=== PATIENT | female | born 1995 | race African-American/Black ===

== ENCOUNTER 2017-12-14 19:52 | Emergency (ER) | payer MEDICAID ==
[~2017-12-14] VITALS: Ht 162.6 cm; Wt 63.5 kg
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
--- NOTE | 2017-12-14 21:12 | NUR ---
PT AT CT FROM HEAD SCAN
--- NOTE | 2017-12-14 21:30 | NUR ---
Patient discharged to home in stable conditon. Written and verbal after care instructions given. Patient verbalizes understanding of instructions. Patient able to ambulate unassisted with steady gait. Patient left with all personal belongings.
[2017-12-14 21:43] VITALS: BP 112/69
== END 2017-12-14 21:30 | disposition home or self-care (01) ==
LOC: ER 19:55
DX: S02.2XXA Fracture of nasal bones, initial encounter for closed fracture (principal); F07.81 Postconcussional syndrome; F17.210 Nicotine dependence, cigarettes, uncomplicated; X58.XXXA Exposure to other specified factors, initial encounter; Y93.89 Activity, other specified; Y92.89 Other specified places as the place of occurrence of the external cause; Y99.8 Other external cause status
CPT/HCPCS: 70450; 70486; 72125; A4663

== ENCOUNTER 2019-01-01 14:01 | Emergency (ER) | payer MEDICAID ==
[~2019-01-01] VITALS: Ht 162.6 cm; Wt 63.5 kg
[2019-01-01] MEDS ORDERED: TDAP DIPH,PERTUSS,TET VAC/PF 0.5 ML DISP.SYRIN IM ONE ×2 (14:23→14:30)
[2019-01-01 14:30] VITALS: BP 131/68
--- NOTE | 2019-01-01 14:30 | NUR ---
Patient discharged to home in stable conditon. Written and verbal after care instructions given. Patient verbalizes understanding of instructions.
== END 2019-01-01 14:32 | disposition home or self-care (01) ==
LOC: ER 14:01
DX: S01.452A Open bite of left cheek and temporomandibular area, initial encounter (principal); F17.200 Nicotine dependence, unspecified, uncomplicated; W50.3XXA Accidental bite by another person, initial encounter; Y93.89 Activity, other specified; Y92.89 Other specified places as the place of occurrence of the external cause; Y99.8 Other external cause status
CPT/HCPCS: 90715; A4663

== ENCOUNTER 2019-07-30 11:35 | Emergency (ER) | payer MEDICAID ==
[~2019-07-30] VITALS: Ht 162.6 cm; Wt 63.5 kg
--- NOTE | 2019-07-30 12:08 | NUR ---
Dr Kerns at the bedside for MSE.
[2019-07-30 12:18] VITALS: BP 105/67
--- NOTE | 2019-07-30 12:19 | NUR ---
Patient discharged to home in stable conditon. Written and verbal after care instructions given. Patient verbalizes understanding of instructions.
== END 2019-07-30 12:19 | disposition home or self-care (01) ==
LOC: ER 11:35
DX: H66.91 Otitis media, unspecified, right ear (principal); F17.200 Nicotine dependence, unspecified, uncomplicated
CPT/HCPCS: A4663

== ENCOUNTER 2020-01-31 09:36 | Emergency (ER) | payer MEDICAID ==
[~2020-01-31] VITALS: Ht 162.6 cm; Wt 63.5 kg
[2020-01-31] MEDS ORDERED: ACETAMINOPHEN 325 MG TABLET PO ONE (10:00)
[2020-01-31] MEDS ORDERED: ACETAMINOPHEN 325 MG TABLET ONE (10:05)
--- NOTE | 2020-01-31 10:35 | NUR ---
PATIENT WAS SEEN BY . IMAGING COMPLETE.
--- NOTE | 2020-01-31 10:42 | NUR ---
DC AND FOLLOW UP INSTRUCTIONS GIVEN AND EXPLAINED TO PATIENT WHO STATES SHE UNDERSTANDS ALL INSTRUCTIONS INCLUDING NARCOTIC PRECAUTIONS.
== END 2020-01-31 10:50 | disposition home or self-care (01) ==
LOC: ER 09:36
DX: S06.9X1A Unspecified intracranial injury with loss of consciousness of 30 minutes or less, initial encounter (principal); S16.1XXA Strain of muscle, fascia and tendon at neck level, initial encounter; S50.01XA Contusion of right elbow, initial encounter; S80.01XA Contusion of right knee, initial encounter; R40.2412 Glasgow coma scale score 13-15, at arrival to emergency department; V43.52XA Car driver injured in collision with other type car in traffic accident, initial encounter; Y92.410 Unspecified street and highway as the place of occurrence of the external cause
CPT/HCPCS: 70450; 73080; A4663

== ENCOUNTER 2020-05-02 18:21 | Emergency (ER) | payer MEDICAID ==
[~2020-05-02] VITALS: Ht 162.6 cm; Wt 63.5 kg
--- NOTE | 2020-05-02 18:53 | NUR ---
pending MD evaluation@this time
[2020-05-02] MEDS ORDERED: ACETAMINOPHEN ES 500 MG TABLET PO ONE (19:00)
[2020-05-02] MEDS ORDERED: ACETAMINOPHEN ES 500 MG TABLET ONE (19:04)
--- NOTE | 2020-05-02 19:05 | NUR ---
Blood being drawn by ab vice president global advertising sales, hallie U/S scan@this time Addendum: 05/02/20 at 1907 by WILTON blood draw by lab vice president global advertising sales
--- NOTE | 2020-05-02 19:07 | NUR ---
Assumed care of patient. no acute distress noted. vss
[2020-05-02 19:14] LABS: *BILIRUBIN,URIN NEGATIVE (NEGATIVE); *BLOOD, URINE 3+ (NEGATIVE); *CLARITY,URINE SLIGHTLY CLOUDY (CLEAR); *COLOR,URINE YELLOW (YELLOW); *KETONES,URINE TRACE (NEGATIVE); *UROBILINOGEN,URINE 0.2 E.U./dl (NORMAL); LEUKOCYTE ESTERASE ,URINE NEGATIVE (NEGATIVE); NITRITE, URINE NEGATIVE (NEGATIVE); UGLUCOSE NEGATIVE (NEGATIVE)
[2020-05-02 19:21] LABS: BASOPHILS # (AUTO) 0.1 K/uL (0.0-8.0); BASOPHILS % (AUTO) 0.8 % (0.0-2.0); EOSINOPHILS % (AUTO) 0.4 % (0.0-7.0); HEMATOCRIT 34.6 % (31.2-41.9); HEMOGLOBIN 10.9 g/dL (10.9-14.3); LYMPHOCYTES # (AUTO) 2.7 K/uL (20.0-40.0); LYMPHOCYTES % (AUTO) 27.3 % (20.5-51.5); MEAN CORPUSCULAR HEMOGLOBIN 23.7 uug (24.7-32.8); MEAN CORPUSCULAR HGB CONC 32 g/dL (32.3-35.6); MEAN CORPUSCULAR VOLUME 75.2 fL (75.5-95.3); MONOCYTES # (AUTO) 0.8 K/uL (2.0-10.0); MONOCYTES % (AUTO) 8.1 % (0.0-11.0); NEUTROPHILS # (AUTO) 6.2 K/uL (1.8-8.9); NEUTROPHILS % (AUTO) 63.4 % (38.5-71.5); PLATELET COUNT (AUTO) 292 K/uL (179-408); WHITE BLOOD COUNT (AUTO) 9.8 K/uL (3.8-11.8)
[2020-05-02 19:42] LABS: BILIRUBIN,DIRECT 0.1 mg/dL (0.0-0.2); BILIRUBIN,TOTAL 0.3 mg/dL (0.2-1.0); CREATININE 0.7 mg/dL (0.6-1.3); TOTAL PROTEIN, SERUM 6.9 g/dL (6.4-8.2)
[2020-05-02 19:50] LABS: POTASSIUM 3.7 mmol/L (3.5-5.1)
--- NOTE | 2020-05-02 20:06 | NUR ---
Transvaginal BUCKY done by [facility] tech. Chaperoned by RN.
--- NOTE | 2020-05-02 20:19 | NUR ---
Patient in bed, no acute distress noted. VSS
--- NOTE | 2020-05-02 20:51 | NUR ---
Patient discharged to home in stable condition. Written and verbal after care instructions given. Patient verbalizes understanding of instructions. Stressed follow up or return to ER for worsening s/s. Ambulated from ER with stable gait. All belongings with patient. VSS
[2020-05-02 20:52] VITALS: BP 127/70
[2020-05-03 03:01] LABS: RBC,URINE 50-80 /HPF (0-3)
[2020-05-03 03:02] LABS: BACTERIA,URINE FEW /HPF (NONE SEEN); MUCUS,URINE MODERATE /LPF (0-FEW); SQUAMOUS EPITHELIAL CELL,UR FEW /HPF (NONE SEEN)
== END 2020-05-02 20:52 | disposition home or self-care (01) ==
LOC: ER 18:24
DX: O03.9 Complete or unspecified spontaneous abortion without complication (principal)
CPT/HCPCS: 36415; 76856; 85025; 86850; 86900; 86901; A4663; A9150

== ENCOUNTER 2020-09-10 04:36 | Emergency (ER) | payer MEDICAID ==
[~2020-09-10] VITALS: Ht 162.6 cm; Wt 67.1 kg
--- NOTE | 2020-09-10 04:45 | NUR ---
at bedside for assessment
[2020-09-10 05:19] LABS: BASOPHILS % (AUTO) 0.4 % (0.0-2.0); EOSINOPHILS % (AUTO) 0.3 % (0.0-7.0); HEMATOCRIT 35.2 % (31.2-41.9); HEMOGLOBIN 11.6 g/dL (10.9-14.3); LYMPHOCYTES # (AUTO) 2.1 K/uL (20.0-40.0); LYMPHOCYTES % (AUTO) 22.7 % (20.5-51.5); MEAN CORPUSCULAR HEMOGLOBIN 24.8 uug (24.7-32.8); MEAN CORPUSCULAR HGB CONC 33 g/dL (32.3-35.6); MEAN CORPUSCULAR VOLUME 75.5 fL (75.5-95.3); MONOCYTES # (AUTO) 0.7 K/uL (2.0-10.0); MONOCYTES % (AUTO) 8.1 % (0.0-11.0); NEUTROPHILS # (AUTO) 6.2 K/uL (1.8-8.9); NEUTROPHILS % (AUTO) 68.5 % (38.5-71.5); PLATELET COUNT (AUTO) 319 K/uL (179-408); RED BLOOD CELL COUNT(AUTO) 4.66 MIL/uL (3.63-4.92); WHITE BLOOD COUNT (AUTO) 9.1 K/uL (3.8-11.8)
[2020-09-10 05:26] LABS: CARBON DIOXIDE 25 mmol/L (21-32); CHLORIDE 103 mmol/L (98-107); CREATININE 0.6 mg/dL (0.6-1.3); GLUCOSE 103 mg/dL (74-106); POTASSIUM 3.4 mmol/L (3.5-5.1); UREA NITROGEN, BLOOD 5 mg/dL (7-18)
[2020-09-10] MEDS ORDERED: MORPHINE SULFATE 4 MG/1 ML DISP.SYRIN ONE (05:28)
[2020-09-10] MEDS ORDERED: CEFOXITIN 1 G VIAL ONE (05:28)
[2020-09-10] MEDS ORDERED: CEFOXITIN IV ONE (05:30)
[2020-09-10] MEDS ORDERED: MORPHINE SULFATE 4 MG/1 ML DISP.SYRIN IV ONE (05:30)
[2020-09-10] MEDS ORDERED: DEXTROSE 5% IV ONE (05:30)
[2020-09-10] MEDS ORDERED: IV NS 1000 ML 1,000 ML IV ONE (05:30)
[2020-09-10 05:32] LABS: ALANINE AMINOTRANSFERASE 20 U/L (14-59); ALKALINE PHOSPHATASE 43 U/L (50-136); ASPARTATE AMINOTRANSFERASE 15 U/L (15-37); BILIRUBIN,DIRECT 0.1 mg/dL (0.0-0.2); BILIRUBIN,TOTAL 0.5 mg/dL (0.2-1.0); TOTAL PROTEIN, SERUM 7.6 g/dL (6.4-8.2)
--- NOTE | 2020-09-10 06:00 | NUR ---
Complaints of pain in right lower quadrant of abdomen, US of abdomen performed
[2020-09-10] MEDS ORDERED: PREN1TAB81 PO (06:15)
[2020-09-10 06:28] LABS: *BILIRUBIN,URIN NEGATIVE (NEGATIVE); *BLOOD, URINE NEGATIVE (NEGATIVE); *CLARITY,URINE TURBID (CLEAR); *COLOR,URINE YELLOW (YELLOW); *KETONES,URINE NEGATIVE (NEGATIVE); *UROBILINOGEN,URINE 0.2 E.U./dl (NORMAL); LEUKOCYTE ESTERASE ,URINE NEGATIVE (NEGATIVE); NITRITE, URINE NEGATIVE (NEGATIVE); PH,URINE 8.5 (5.0-8.0); UGLUCOSE NEGATIVE (NEGATIVE)
--- NOTE | 2020-09-10 06:35 | NUR ---
IV placed in right AC 22g
--- NOTE | 2020-09-10 07:27 | NUR ---
MRI TECHNITIALINE ESPARZA WAS CALLED FOR MRI ARRANGEMENT.
--- NOTE | 2020-09-10 07:32 | NUR ---
TEXT DR. DR. CUEVAS FOR MRI APPROVAL.
--- NOTE | 2020-09-10 07:33 | NUR ---
MRI APPROVED BY DR. CUEVAS.
--- NOTE | 2020-09-10 09:18 | NUR ---
PT IS RESTING IN BED COMFORTABLY. NO S/S OF ACUTE DISTRESS AT THIS TIME.PT IS GOING TO MRI W/O CONTRAST PROCEDURE AT [facility]. TALKED TO ARELIS FROM [employer], SHE APPROVED MRI PROCEDURE, APPROVAL # [id number]. PT IS GOING TO [facility] AT [address] DR SIFUENTES VERIFIED WITH PT THAT HER TERM IS 10 WEEKS INSTEAD OF [address] SIFUENTES APPROVED MRI PROCEDURE.
--- NOTE | 2020-09-10 13:54 | NUR ---
PT WAS D/C'd TO HOME. D/C INSTRUCTIONS GIVEN TO THE PT BY DR SIFUENTES.
[2020-09-10 13:57] VITALS: BP 128/72
== END 2020-09-10 13:58 | disposition home or self-care (01) ==
LOC: ER 04:37
DX: O34.81 Maternal care for other abnormalities of pelvic organs, first trimester (principal); N83.201 Unspecified ovarian cyst, right side; Z3A.10 10 weeks gestation of pregnancy; R10.31 Right lower quadrant pain; E87.6 Hypokalemia; Z87.820 Personal history of traumatic brain injury; Z20.822 Contact with and (suspected) exposure to COVID-19
CPT/HCPCS: 36415; 72195; 74181; 76705; 76856; 80048; 80076; 81003; 84702; 85025; 87426; 96361; 96374; 96375; 99285; J0694; J2270; J7060; 70030-TC; A4663; J3490; J7030

== ENCOUNTER 2024-08-28 18:27 | Emergency (ER) | payer MEDICAID, OTHER ==
[~2024-08-28] VITALS: Ht 162.6 cm; Wt 65.8 kg
[~2024-08-28 18:27] MED LIST: PREN1TAB81 PO
[2024-08-28] MEDS ORDERED: ONDANSETRON 4 MG/2 ML VIAL ONE (20:53)
[2024-08-28] MEDS ORDERED: KETOROLAC TROMETHAMINE 15 MG INJ ONE (20:53)
[2024-08-28] MEDS: KETOROLAC TROMETHAMINE 15 MG INJ IVP ONE (20:57)
[2024-08-28] MEDS: IV NORMAL SALINE 1000 ML BAG IV ONE (20:57)
[2024-08-28] MEDS: ONDANSETRON 4 MG/2 ML VIAL IV ONE (20:57)
[2024-08-28 21:30] LABS: BASOPHILS % (AUTO) 0.4 % (0.0-2.0); EOSINOPHILS % (AUTO) 0.2 % (0.0-7.0); HEMATOCRIT 39.6 % (31.2-41.9); HEMOGLOBIN 12.9 g/dL (10.9-14.3); LYMPHOCYTES # (AUTO) 0.6 K/uL (0.8-4.8); LYMPHOCYTES % (AUTO) 11.9 % (20.5-51.5); MEAN CORPUSCULAR HEMOGLOBIN 25.5 uug (24.7-32.8); MEAN CORPUSCULAR HGB CONC 33 g/dL (32.3-35.6); MEAN CORPUSCULAR VOLUME 78.3 fL (75.5-95.3); MONOCYTES # (AUTO) 0.5 K/uL (0.1-1.30); MONOCYTES % (AUTO) 10.9 % (0.0-11.0); NEUTROPHILS # (AUTO) 3.7 K/uL (1.8-8.9); NEUTROPHILS % (AUTO) 76.6 % (38.5-71.5); PLATELET COUNT (AUTO) 290 K/uL (179-408); RED BLOOD CELL COUNT(AUTO) 5.06 MIL/uL (3.63-4.92); WHITE BLOOD COUNT (AUTO) 4.8 K/uL (3.8-11.8)
[2024-08-28 21:33] LABS: DIFFERENTIAL COMMENT 1
[2024-08-28 21:38] LABS: CALCIUM 8.8 mg/dL (8.5-10.1); CARBON DIOXIDE 21 mmol/L (21-32); CHLORIDE 102 mmol/L (98-107); CREATININE 0.7 mg/dL (0.6-1.3); GLUCOSE 96 mg/dL (74-106); POTASSIUM 2.9 mmol/L (3.5-5.1); SODIUM SERUM 143 mmol/L (136-145); UREA NITROGEN, BLOOD 11 mg/dL (7-18)
[2024-08-28 21:47] LABS: ALANINE AMINOTRANSFERASE 25 U/L (14-59); ALKALINE PHOSPHATASE 88 U/L (50-136); ASPARTATE AMINOTRANSFERASE 19 U/L (15-37); BILIRUBIN,DIRECT 0.2 mg/dL (0.0-0.2); BILIRUBIN,TOTAL 0.6 mg/dL (0.2-1.0); LIPASE 16 U/L (16-77); TOTAL PROTEIN, SERUM 8.9 g/dL (6.4-8.2)
[2024-08-28 22:02] LABS: PREGNANCY TEST SERUM QUAN < 1 miul/L (0-6)
[2024-08-28] MEDS ORDERED: POTASSIUM CHLORIDE 20 MEQ TAB.PRT.SR ONE (22:06)
[2024-08-28] MEDS: POTASSIUM CHLORIDE 20 MEQ TAB.PRT.SR PO ONE (22:07)
[2024-08-29] MEDS ORDERED: KETOROLAC TROMETHAMINE 15 MG INJ ONE (00:28)
[2024-08-29] MEDS ORDERED: METOCLOPRAMIDE HCL 10 MG/2 ML VIAL ONE (00:28)
[2024-08-29] MEDS: IV NORMAL SALINE 1000 ML BAG IV ONE (00:37)
[2024-08-29] MEDS: KETOROLAC TROMETHAMINE 15 MG INJ IVP ONE (00:38)
[2024-08-29] MEDS: METOCLOPRAMIDE HCL 10 MG/2 ML VIAL IV ONE (00:38)
[2024-08-29] MEDS ORDERED: IBUP-1957 PO (05:00)
[2024-08-29] MEDS ORDERED: METO-295 PO (05:00)
[2024-08-29 05:09] VITALS: BP 143/43; O2SAT 100
== END 2024-08-29 05:10 | disposition home or self-care (01) ==
LOC: ER 18:27
DX: R11.2 Nausea with vomiting, unspecified (principal); R19.7 Diarrhea, unspecified; R10.2 Pelvic and perineal pain; F17.200 Nicotine dependence, unspecified, uncomplicated
CPT/HCPCS: 99284; 96374; 96361 ×2; 96375 ×2; 80076; 80048; 83690; 85025; 84484; 84702; 36415; 96376; J1885 ×2; J2405; J7040 ×2; J2765; A4606; A4663

== ENCOUNTER 2025-06-01 12:34 | Emergency (ER) | payer OTHER ==
[~2025-06-01] VITALS: Ht 162.6 cm; Wt 63.5 kg
[~2025-06-01 12:34] MED LIST changes: +IBUP-1957 PO; +METO-295 PO
[2025-06-01 12:39] VITALS: BP 119/69
[2025-06-01 16:09] VITALS: BP 118/68; TEMP 98; O2SAT 98
== END 2025-06-01 16:10 | disposition home or self-care (01) ==
LOC: ER 12:34
DX: S82.141A Displaced bicondylar fracture of right tibia, initial encounter for closed fracture (principal); F17.200 Nicotine dependence, unspecified, uncomplicated; V89.2XXA Person injured in unspecified motor-vehicle accident, traffic, initial encounter; Y93.89 Activity, other specified; Y92.410 Unspecified street and highway as the place of occurrence of the external cause; Y99.9 Unspecified external cause status
CPT/HCPCS: 73560; 73590; A4606; A4663